=== PATIENT | male | born 2000 | race Caucasian/White ===

== ENCOUNTER 2021-01-03 03:16 | Emergency (ER) | payer BC | END 2021-01-03 04:49 | disposition home or self-care (01) | LOC: ERS 03:16 | DX: F43.0 Acute stress reaction (principal); F17.210 Nicotine dependence, cigarettes, uncomplicated | CPT/HCPCS: 36416; 71045; 93005 ==

== ENCOUNTER 2021-02-22 19:30 | Inpatient (IN) | payer BC ==
[2021-02-22 20:17] LABS: #Basophils 0.1 thou/uL (0.0-0.2); #Eosinphils 0.1 thou/uL (0.0-0.7); #Lymphocytes 2.5 thou/uL (1.20-3.40); #Monocytes 0.7 thou/uL (0.11-0.59); #Neutrophils 7.5 thou/uL (1.40-6.50); %Basophils 0.8 % (0.0-1.0); %Lymphocytes 23.2 % (28.0-48.0); %Monocytes 6.2 % (0.0-4.0); %Neutrophils 68.8 % (31.0-61.0); Actual Bicarbonate (HCO3v) 20 mEq/L (22-28); Analyzer IN Cardio ER; Base Excess -3.7 mEq/L (-2.0 to +3.0); Calcium, Ionized (venous) 1.13 mmol/L (1.16-1.32); Chloride (VBG) 103 mmol/L (98-106); Hemoglobin 16.2 g/dL (14.0-18.0); Hemoglobin (Hb) 16.9 g/dL (13.2-17.3); Mean Corpuscular HGB CONC 34.8 g/dL (32.0-36.0); Mean Corpuscular Hemoglobin 30.2 pg (25.0-35.0); Mean Corpuscular Volume 86.8 fL (78.0-98.0); Mean Platelet Volume 7.3 fL (7.4-10.4); Platelet Count 279 thou/uL (130-400); Potassium (VBG) 3.92 mmol/L (3.70-5.30); RBC Distribution Width 11.8 % (11.5-14.5); Red Blood Cell (RBC) Count 5.37 mill/uL (4.00-5.20); Sodium 136.9 mmol/L (133-146); White Blood Cell (WBC) Count 10.9 thou/uL (4.8-10.8)
[2021-02-22] MEDS ORDERED: Ondansetron PF 4 MG/2 ML Vial ONE (20:27)
[2021-02-22 20:40] LABS: ALT (SGPT) 22 U/L (8-55); AST (SGOT) 16 U/L (5-34); Acetaminophen Less than 6.0 mcg/mL (10.0-30.0); Albumin 4.5 g/dL (3.5-5.0); Alcohol Less than 10 mg/dL (Less than 10); Alkaline Phosphatase 79 U/L (50-130); Anion Gap 13 mmol/L (10-20); BUN (Urea Nitrogen) 6 mg/dL (8.9-20.6); Bilirubin, Total 2.4 mg/dL (0.2-1.2); Calc. Creatinine Clearance 0 mL/min (70-130); Calcium 9.1 mg/dL (7.8-10.44); Carbon Dioxide 22 mmol/L (22-29); Chloride 106 mmol/L (98-107); Glucose 94 mg/dL (70-105); Lipase 18 U/L (8-78); Magnesium 1.8 mg/dL (1.7-2.2); Potassium 3.8 mmol/L (3.5-5.1); Protein, Total 7.5 g/dL (6.0-8.3); Salicylate Less than 8.0 mg/dL (15.0-30.0); Sodium 137 mmol/L (136-145)
[2021-02-22 21:15] LABS: Bilirubin Negative (Negative); Blood, Urine Negative (Negative); Clarity Clear (Clear); Glucose, Urine (Dipstick) Normal (Negative); Ketone, Urine Negative (Negative); Leukocyte Negative Leu/uL (Negative); Nitrite Negative (Negative); Protein, Urine (Dipstick) Negative (Neg-Trace); Specific Gravity, Urine 1.006 (1.002-1.036); Urobilinogen Normal mg/dL (Less than 2); pH, Urine 7.5 (5.0-9.0)
[2021-02-22 21:25] LABS: Amphetamine Not Detected (NotDetected); Barbiturates Screen Not Detected (NotDetected); Benzodiazepine Screen Not Detected (NotDetected); Cocaine Metabolite Screen Not Detected (NotDetected); Medtox Control Line Valid? VALID (VALID); Medtox Reader # READER 1; Methadone Not Detected (NotDetected); Methamphetamine Not Detected (NotDetected); Opiate Screen Not Detected (NotDetected); Oxycodone Screen Not Detected (NotDetected); Phencyclidine (PCP) Not Detected (NotDetected); THC/Cannabinoid Screen Not Detected (NotDetected); Tricyclic Screen Not Detected (NotDetected)
[2021-02-22] MEDS ORDERED: Acetaminophen 325 MG TAB PO PRN (21:43)
[2021-02-22] MEDS ORDERED: Bisacodyl 10 MG SUPP PR PRN (21:43)
[2021-02-22] MEDS ORDERED: Lorazepam 1 MG TAB PO PRN (21:47)
[2021-02-22] MEDS: Nicotine 14 MG PATCH TD SCH (23:36)
[2021-02-22] MEDS: Sodium Chloride 0.9% 1,000 ML IV SCH (23:37)
[2021-02-23 00:02] VITALS: BMI 31.5
[2021-02-23] MEDS: Ondansetron PF 4 MG/2 ML Vial IVP PRN ×2 (00:25→20:00)
[2021-02-23 02:17] LABS: SARS-CoV-2 NAA Rapid Test Not Detected (NotDetected)
[2021-02-23 04:46] LABS: Hemoglobin 13.4 g/dL (14.0-18.0); Mean Corpuscular HGB CONC 34.2 g/dL (32.0-36.0); Mean Corpuscular Hemoglobin 29.7 pg (25.0-35.0); Mean Corpuscular Volume 86.8 fL (78.0-98.0); Mean Platelet Volume 7.6 fL (7.4-10.4); Platelet Count 249 thou/uL (130-400); RBC Distribution Width 11.7 % (11.5-14.5); White Blood Cell (WBC) Count 9.4 thou/uL (4.8-10.8)
[2021-02-23 05:06] LABS: ALT (SGPT) 14 U/L (8-55); AST (SGOT) 10 U/L (5-34); Albumin 3.5 g/dL (3.5-5.0); Alkaline Phosphatase 62 U/L (50-130); Anion Gap 8 mmol/L (10-20); BUN (Urea Nitrogen) 6 mg/dL (8.9-20.6); Bilirubin, Total 1.8 mg/dL (0.2-1.2); Calc. Creatinine Clearance 132 mL/min (70-130); Calcium 8.4 mg/dL (7.8-10.44); Carbon Dioxide 27 mmol/L (22-29); Chloride 108 mmol/L (98-107); Globulin 2.2 g/dL (2.4-3.5); Glucose 110 mg/dL (70-105); Potassium 3.4 mmol/L (3.5-5.1); Protein, Total 5.7 g/dL (6.0-8.3); Sodium 140 mmol/L (136-145)
[2021-02-23 05:09] LABS: Band 5 % (5-11); Eosinophils 2 % (0-10); Lymphocytes 35 % (28-48); MDiff Complete? YES; Monocytes 3 % (0-4); Neutrophil 55 % (31-61)
[2021-02-23] MEDS: Bacitracin 1 PK TOP SCH ×3 (09:10→20:00)
[2021-02-23] MEDS: Enoxaparin Sodium 40 MG/0.4 ML SYRINGE SC SCH (09:10)
[2021-02-23] MEDS: Famotidine 20 MG TAB PO SCH ×2 (09:10→20:00)
[2021-02-23] MEDS: Sodium Chloride 0.9% 1,000 ML IV SCH ×2 (09:11→20:01)
[2021-02-23] MEDS: Nicotine 14 MG PATCH TD SCH (20:01)
[2021-02-24] MEDS: Sodium Chloride 0.9% 1,000 ML IV SCH (05:14)
[2021-02-24] MEDS: Bacitracin 1 PK TOP SCH (08:07)
[2021-02-24] MEDS: Enoxaparin Sodium 40 MG/0.4 ML SYRINGE SC SCH (08:08)
[2021-02-24] MEDS: Famotidine 20 MG TAB PO SCH (08:08)
[2021-02-24 11:12] VITALS: BP 123/73; TEMP 98
== END 2021-02-24 13:23 | disposition home or self-care (01) | DRG 917 ==
LOC: ERS 19:30 → 2NO 21:21 → OBSVTOIN 02-23 14:26
PROVIDERS: ADMIT Internal Medicine; ATTEND Family Medicine
DX: T43.212A Poisoning by selective serotonin and norepinephrine reuptake inhibitors, intentional self-harm, initial encounter (principal); G92 Toxic encephalopathy; R45.851 Suicidal ideations; S61.512A Laceration without foreign body of left wrist, initial encounter; X78.9XXA Intentional self-harm by unspecified sharp object, initial encounter; Z20.822 Contact with and (suspected) exposure to COVID-19; F51.04 Psychophysiologic insomnia; G89.29 Other chronic pain; M54.9 Dorsalgia, unspecified; F17.210 Nicotine dependence, cigarettes, uncomplicated; R00.0 Tachycardia, unspecified; F64.0 Transsexualism; Z79.890 Hormone replacement therapy; Z82.49 Family history of ischemic heart disease and other diseases of the circulatory system
CPT/HCPCS: 36415; 80053; 80306; 80307; 81003; 82550; 82805; 83690; 83735; 84443; 85007; 85025; 85027; 87635; 93005; 96372; 96374; G0378; J1650; J2405; U0002; U0003; U0005

== ENCOUNTER 2021-07-01 15:48 | Emergency (ER) | payer BC ==
[2021-07-01 17:08] LABS: #Eosinphils 0.2 thou/uL (0.0-0.7); #Lymphocytes 1.8 thou/uL (1.20-3.40); #Monocytes 0.5 thou/uL (0.11-0.59); #Neutrophils 3.5 thou/uL (1.40-6.50); %Basophils 0.4 % (0.0-1.0); %Eosinophils 2.8 % (0.0-10.0); %Lymphocytes 29.3 % (28.0-48.0); %Monocytes 8.8 % (0.0-4.0); %Neutrophils 58.6 % (31.0-61.0); Hemoglobin 15.1 g/dL (14.0-18.0); Mean Corpuscular HGB CONC 34.5 g/dL (32.0-36.0); Mean Corpuscular Hemoglobin 29.3 pg (25.0-35.0); Mean Corpuscular Volume 84.9 fL (78.0-98.0); Mean Platelet Volume 7.4 fL (7.4-10.4); Platelet Count 262 thou/uL (130-400); RBC Distribution Width 11.8 % (11.5-14.5); Red Blood Cell (RBC) Count 5.14 mill/uL (4.00-5.20)
[2021-07-01 17:32] LABS: ALT (SGPT) 15 U/L (8-55); AST (SGOT) 12 U/L (5-34); Albumin 4.6 g/dL (3.5-5.0); Alkaline Phosphatase 85 U/L (50-130); Anion Gap 11 mmol/L (10-20); BUN (Urea Nitrogen) 4 mg/dL (8.9-20.6); Bilirubin, Total 1.8 mg/dL (0.2-1.2); Calc. Creatinine Clearance 0 mL/min (70-130); Calcium 9.9 mg/dL (7.8-10.44); Carbon Dioxide 27 mmol/L (22-29); Chloride 105 mmol/L (98-107); Globulin 3.1 g/dL (2.4-3.5); Glucose 99 mg/dL (70-105); Potassium 4.2 mmol/L (3.5-5.1); Protein, Total 7.7 g/dL (6.0-8.3); Sodium 139 mmol/L (136-145)
== END 2021-07-01 18:05 | disposition home or self-care (01) ==
LOC: ERS 15:48
DX: R56.9 Unspecified convulsions (principal)
CPT/HCPCS: 36415; 80053; 85025; 99284

== ENCOUNTER 2021-07-30 11:55 | Outpatient (CLI) | payer BC | END 2021-07-30 11:56 | disposition home or self-care (01) | LOC: MRI 11:55 | PROVIDERS: ATTEND Nurse Practitioner Acute Care | DX: R56.9 Unspecified convulsions (principal) | CPT/HCPCS: 70553; 95816 ==

== ENCOUNTER 2021-10-30 12:58 | Inpatient (IN) | payer BC ==
[2021-10-30 13:58] LABS: #Basophils 0.1 thou/uL (0.0-0.2); #Eosinphils 0.2 thou/uL (0.0-0.7); #Lymphocytes 2.4 thou/uL (1.20-3.40); #Monocytes 0.7 thou/uL (0.11-0.59); #Neutrophils 3.5 thou/uL (1.40-6.50); %Basophils 0.8 % (0.0-1.0); %Eosinophils 2.6 % (0.0-10.0); %Lymphocytes 34.9 % (21.0-51.0); %Monocytes 10.1 % (0.0-10.0); %Neutrophils 51.5 % (42.0-75.0); Hemoglobin 14.6 g/dL (14.0-18.0); Mean Corpuscular Hemoglobin 29.2 pg (27.0-31.0); Mean Corpuscular Volume 85.8 fL (78.0-98.0); Platelet Count 267 thou/uL (130-400); RBC Distribution Width 11.4 % (11.5-14.5); Red Blood Cell (RBC) Count 4.99 mill/uL (4.70-6.10); White Blood Cell (WBC) Count 6.8 thou/uL (4.8-10.8)
[2021-10-30 14:20] LABS: ALT (SGPT) 19 U/L (8-55); AST (SGOT) 12 U/L (5-34); Albumin 4.6 g/dL (3.5-5.0); Alkaline Phosphatase 85 U/L (40-110); Anion Gap 13 mmol/L (10-20); BUN (Urea Nitrogen) 6 mg/dL (8.9-20.6); Bilirubin, Total 1.5 mg/dL (0.2-1.2); Calc. Creatinine Clearance 0 mL/min (70-130); Calcium 9.4 mg/dL (7.8-10.44); Carbon Dioxide 26 mmol/L (22-29); Chloride 104 mmol/L (98-107); Globulin 2.8 g/dL (2.4-3.5); Glucose 88 mg/dL (70-105); Potassium 3.8 mmol/L (3.5-5.1); Protein, Total 7.4 g/dL (6.0-8.3); Sodium 139 mmol/L (136-145)
[2021-10-30 17:18] LABS: Troponin I Less than 0.010 ng/mL (< 0.028)
[2021-10-30] MEDS ORDERED: Ondansetron PF 4 MG/2 ML Vial IVP PRN (20:19)
[2021-10-30] MEDS ORDERED: Acetaminophen 325 MG TAB PO PRN (20:19)
[2021-10-30] MEDS ORDERED: Senokot S 8.6-50 MG TAB PO PRN (20:19)
[2021-10-30 20:25] LABS: Troponin I Less than 0.010 ng/mL (< 0.028)
[2021-10-30] MEDS ORDERED: Melatonin 3 MG TAB PO PRN (20:25)
[2021-10-30] MEDS ORDERED: Enoxaparin Sodium 40 MG/0.4 ML SYRINGE SC SCH (20:30)
[2021-10-30] MEDS: Famotidine/PF 20 mg/2ml Vial SLOW IVP SCH (21:51)
[2021-10-30] MEDS: Enoxaparin Sodium 40 MG/0.4 ML SYRINGE SC SCH ×2 (21:51→21:52)
[2021-10-30 22:04] VITALS: BMI 29.7
[2021-10-31 05:23] LABS: #Eosinphils 0.2 thou/uL (0.0-0.7); #Lymphocytes 2.9 thou/uL (1.20-3.40); #Monocytes 0.7 thou/uL (0.11-0.59); #Neutrophils 3.4 thou/uL (1.40-6.50); %Basophils 0.5 % (0.0-1.0); %Eosinophils 2.4 % (0.0-10.0); %Lymphocytes 40.8 % (21.0-51.0); %Monocytes 9.2 % (0.0-10.0); %Neutrophils 47.2 % (42.0-75.0); Hemoglobin 15.4 g/dL (14.0-18.0); Mean Corpuscular HGB CONC 34.5 g/dL (32.0-36.0); Mean Corpuscular Hemoglobin 29.9 pg (27.0-31.0); Mean Corpuscular Volume 86.7 fL (78.0-98.0); Mean Platelet Volume 7.6 fL (7.4-10.4); Platelet Count 256 thou/uL (130-400); RBC Distribution Width 11.6 % (11.5-14.5); Red Blood Cell (RBC) Count 5.15 mill/uL (4.70-6.10); White Blood Cell (WBC) Count 7.1 thou/uL (4.8-10.8)
[2021-10-31 05:51] LABS: ALT (SGPT) 19 U/L (8-55); AST (SGOT) 12 U/L (5-34); Albumin 4.6 g/dL (3.5-5.0); Alkaline Phosphatase 84 U/L (40-110); Anion Gap 10 mmol/L (10-20); BUN (Urea Nitrogen) 5 mg/dL (8.9-20.6); Bilirubin, Total 1.5 mg/dL (0.2-1.2); Calc. Creatinine Clearance 135 mL/min (70-130); Calcium 9.6 mg/dL (7.8-10.44); Carbon Dioxide 28 mmol/L (22-29); Cardiac Risk 3.9 (Less than 4.5); Chloride 103 mmol/L (98-107); Cholesterol 128 mg/dl (< 200 Desired); Globulin 3.2 g/dL (2.4-3.5); Glucose 81 mg/dL (70-105); HDL Cholesterol 33 mg/dL (>60 Neg Risk); LDL Cholesterol, Calculated 79 mg/dL; Potassium 3.7 mmol/L (3.5-5.1); Protein, Total 7.8 g/dL (6.0-8.3); Sodium 137 mmol/L (136-145); Triglycerides 78 mg/dL (Less than 150)
[2021-10-31] MEDS: Famotidine/PF 20 mg/2ml Vial SLOW IVP SCH ×2 (09:02→21:11)
[2021-10-31 12:31] LABS: SARS-CoV-2 PCR by NAA Not Detected (NotDetected)
[2021-10-31] MEDS ORDERED: Sodium Chloride 0.9% 1,000 ML IV SCH (12:45)
[2021-11-01] MEDS: Famotidine/PF 20 mg/2ml Vial SLOW IVP SCH ×2 (09:39→20:42)
[2021-11-01] MEDS ORDERED: Metoprolol Tartrate 25 MG TAB PO SCH (14:00)
[2021-11-01] MEDS ORDERED: Metoprolol Tartrate 25 MG TAB PO PRN (19:43)
[2021-11-02] MEDS: Metoprolol Tartrate 25 MG TAB PO SCH (09:38)
[2021-11-02] MEDS: Famotidine/PF 20 mg/2ml Vial SLOW IVP SCH (09:38)
[2021-11-02] MEDS: Enoxaparin Sodium 40 MG/0.4 ML SYRINGE SC SCH (21:25)
[2021-11-02] MEDS: Famotidine 20 MG TAB PO SCH (21:25)
[2021-11-03] MEDS: Famotidine 20 MG TAB PO SCH (08:58)
[2021-11-03] MEDS: Metoprolol Tartrate 25 MG TAB PO SCH (08:59)
[2021-11-03 12:21] VITALS: BP 115/56; TEMP 98.9
== END 2021-11-03 14:47 | disposition home or self-care (01) | DRG 309 ==
LOC: ERS 12:58 → 2NO 16:19 → INTOOBSV 16:19 → OBSVTOIN 11-02 07:18
PROVIDERS: ADMIT Family Medicine; ATTEND Internal Medicine
DX: I49.8 Other specified cardiac arrhythmias (principal); F84.0 Autistic disorder; R55 Syncope and collapse; Z20.822 Contact with and (suspected) exposure to COVID-19; E80.6 Other disorders of bilirubin metabolism; F43.10 Post-traumatic stress disorder, unspecified; F90.9 Attention-deficit hyperactivity disorder, unspecified type; F41.9 Anxiety disorder, unspecified; F12.10 Cannabis abuse, uncomplicated; I08.1 Rheumatic disorders of both mitral and tricuspid valves; Z87.891 Personal history of nicotine dependence; Z79.890 Hormone replacement therapy; Z88.6 Allergy status to analgesic agent; Z88.8 Allergy status to other drugs, medicaments and biological substances; Z71.51 Drug abuse counseling and surveillance of drug abuser
CPT/HCPCS: 36415; 70450; 70551; 71045; 80053; 80061; 82533; 84443; 84484; 85025; 93005; 93306; 93880; 95816; 95819; 95957; 96372; 96374; 96376; G0378; J1650; J7050; S0028; U0003; U0005

== ENCOUNTER 2021-11-13 18:50 | Emergency (ER) | payer BC ==
[2021-11-13] MEDS ORDERED: Ondansetron PF 4 MG/2 ML Vial ONE (20:00)
[2021-11-13 20:11] LABS: #Eosinphils 0.1 thou/uL (0.0-0.7); #Lymphocytes 2.1 thou/uL (1.20-3.40); #Monocytes 0.9 thou/uL (0.11-0.59); %Basophils 0.3 % (0.0-1.0); %Eosinophils 1.5 % (0.0-10.0); %Lymphocytes 25.8 % (21.0-51.0); %Monocytes 10.7 % (0.0-10.0); %Neutrophils 61.7 % (42.0-75.0); Hemoglobin 14.7 g/dL (14.0-18.0); Mean Corpuscular HGB CONC 33.6 g/dL (32.0-36.0); Mean Corpuscular Hemoglobin 28.8 pg (27.0-31.0); Mean Corpuscular Volume 85.5 fL (78.0-98.0); Platelet Count 281 thou/uL (130-400); RBC Distribution Width 11.3 % (11.5-14.5); Red Blood Cell (RBC) Count 5.13 mill/uL (4.70-6.10); White Blood Cell (WBC) Count 8.1 thou/uL (4.8-10.8)
[2021-11-13 20:34] LABS: ALT (SGPT) 25 U/L (8-55); AST (SGOT) 14 U/L (5-34); Albumin 4.4 g/dL (3.5-5.0); Alkaline Phosphatase 79 U/L (40-110); Anion Gap 11 mmol/L (10-20); BUN (Urea Nitrogen) 4 mg/dL (8.9-20.6); Bilirubin, Total 1.7 mg/dL (0.2-1.2); Calc. Creatinine Clearance 0 mL/min (70-130); Calcium 9.5 mg/dL (7.8-10.44); Carbon Dioxide 25 mmol/L (22-29); Chloride 104 mmol/L (98-107); Globulin 3.1 g/dL (2.4-3.5); Glucose 104 mg/dL (70-105); Magnesium 1.7 mg/dL (1.6-2.6); Potassium 3.3 mmol/L (3.5-5.1); Protein, Total 7.5 g/dL (6.0-8.3); Sodium 137 mmol/L (136-145)
[2021-11-13] MEDS ORDERED: Potassium Chloride 20 MEQ TAB ONE (21:11)
== END 2021-11-13 21:59 | disposition home or self-care (01) ==
LOC: ERS 18:50
DX: I49.8 Other specified cardiac arrhythmias (principal); R56.9 Unspecified convulsions
CPT/HCPCS: 36415; 80053; 83735; 85025; 93005; 96374; J2405

== ENCOUNTER 2022-04-29 15:23 | Emergency (ER) | payer BC | END 2022-04-29 16:20 | disposition home or self-care (01) | LOC: ERS 15:23 | DX: T67.5XXA Heat exhaustion, unspecified, initial encounter (principal); I49.8 Other specified cardiac arrhythmias; Z79.899 Other long term (current) drug therapy ==

== ENCOUNTER 2022-05-19 06:09 | Emergency (ER) | payer BC | END 2022-05-19 07:28 | disposition home or self-care (01) | LOC: ERS 06:09 | DX: R07.89 Other chest pain (principal); T44.7X5A Adverse effect of beta-adrenoreceptor antagonists, initial encounter; Z87.891 Personal history of nicotine dependence | CPT/HCPCS: 71045; 93005 ==